=== PATIENT | male | born 1985 | race American Indian/Alaskan Native ===

== ENCOUNTER 2017-04-05 17:01 | Emergency (ER) | payer OTHER ==
[2017-04-05 18:55] LABS: Hematocrit 43.2 % (35.5-45.6); Hemoglobin 14.5 gm/dl (11.8-15.2); Mean Corpuscular HGB Conc 34 % (32-34); Mean Corpuscular Hemoglobin 31 pg (28-32); Mean Corpuscular Volume 93 fl (84-94); Platelet Count 182 K/mm3 (140-440); Red Blood Count 4.67 M/mm3 (3.65-5.03); Red Cell Distribution Width 13.8 % (13.2-15.2)
[2017-04-05 19:14] LABS: BUN/Creatinine Ratio 14; Blood Urea Nitrogen 11 mg/dL (9-20); Calcium 8.7 mg/dL (8.4-10.2); Hemolysis Index 3
--- NOTE | 2017-04-05 19:30 | XRay Report ---
FINAL REPORT EXAM: XR CHEST ROUTINE 2V HISTORY: cought/fever TECHNIQUE: Frontal and lateral chest x-ray. PRIORS: None. FINDINGS: Cardiac and mediastinal silhouette within normal limits. Lungs are normally expanded, without significant vascular congestion. No focal consolidation, pleural effusion or apparent pneumothorax. Bony thorax grossly unremarkable. IMPRESSION: 1. No acute consolidation.
[2017-04-06 06:19] VITALS: BP 134/84
[2017-04-06] MEDS ORDERED: TYLENOL PO ONE (08:03)
[2017-04-06] MEDS ORDERED: ZOFRAN ODT PO ONE (08:03)
[2017-04-06 08:33] LABS: Bilirubin,Urine NEG (Negative); Blood,Urine NEG (Negative); Color,Urine Yellow (Yellow); Mucus,Urine 1+ /HPF; Nitrite,Urine NEG (Negative)
--- NOTE | 2017-04-06 09:23 | Emergency Department Report ---
- General Chief Complaint: Upper Respiratory Infection Stated Complaint: STOMACH VIRUS/MELLO/COLD Source: patient Mode of arrival: Ambulatory Limitations: No Limitations - History of Present Illness Initial Comments: 31-year-old male past medical history HIV on HAART medicine, history of epididymitis presents with complaint of approximately 5-6 days of runny nose dry nonproductive cough slightly sore throat and a few episodes of diarrhea over the last few days. Patient states he has been slightly more fatigued than usual. Patient is currently awake alert and oriented 3 does not appear to be in acute distress nontoxic appearing for lucid. Denies any pain at this time. Denies chest pain palpitations shortness of breath or dyspnea increased urinary frequency dysuria hematuria or foul-smelling urine. Denies abdominal pain. States that he has had sinus a few episodes of watery stool over the last few days which has since resolved. Patient tolerating by mouth fluid states he has slightly decreased appetite. Patient also incidentally states that he has a cotton swab stuck in his right ear for approximately one week. States that his partner at bedside has had some similar symptoms. Denies any photo or phonophobia denies any nuchal rigidity. Denies any purulent drainage from ears. Patient speaking in full sentences no audible wheezing or stridor no visible trismus or drooling. Reports no rash. Denies any recent travel. Denies any pleuritic chest pain. States he has been compliant with his HIV medicine. Cannot recall last CD4 count or viral load MD Complaint: sore throat, rhinorrhea Onset/Timin -: days(s) Severity: mild Context: sick contacts Associated Symptoms: headache, rhinorrhea, sore throat, cough, diarrhea - Related Data Home Medications Medication Instructions Recorded Confirmed Last Taken Efavirenz/Emtricitab/Tenofovir 1 tab PO DAILY 03/30/15 12/04/15 12/03/15 [Atripla Tablet] Previous Rx's Medication Instructions Recorded Last Taken Type Acetaminophen [Acetaminophen TAB] 500 mg PO Q6HR PRN #30 tablet 04/06/17 Unknown Rx Amoxicillin/Potassium Clav 1 each PO BID #20 tablet 04/06/17 Unknown Rx [Augmentin 875-125 Tablet] Nitrofurantoin Monohyd/M-Cryst 100 mg PO BID #14 capsule 04/06/17 Unknown Rx [Macrobid 100 mg Capsule] Ondansetron [Zofran Odt] 4 mg PO Q8HR PRN #10 tab.rapdis 04/06/17 Unknown Rx Allergies Allergy/AdvReac Type Severity Reaction Status Date / Time No Known Allergies Allergy Verified 08/15/14 14:06 ED Review of Systems ROS: Stated complaint: STOMACH VIRUS/MELLO/COLD Other details as noted in HPI Constitutional: malaise. denies: chills, fever Eyes: denies: eye pain, eye discharge, vision change ENT: ear pain (right ear discomfort), congestion. denies: throat pain Respiratory: cough. denies: shortness of breath, wheezing Cardiovascular: denies: chest pain, palpitations Endocrine: no symptoms reported Gastrointestinal: diarrhea (intermittent episodes of diarrhea. Has spontaneously resolved over the last few days.). denies: abdominal pain, nausea Genitourinary: denies: urgency, dysuria Musculoskeletal: denies: back pain, joint swelling, arthralgia Skin: denies: rash, lesions Neurological: denies: headache, weakness, paresthesias Psychiatric: denies: anxiety, depression Hematological/Lymphatic: denies: easy bleeding, easy bruising ED Past Medical Hx - Past Medical History Hx Hypertension: No Hx Congestive Heart Failure: No Hx Diabetes: No Hx Asthma: No Hx COPD: No Hx HIV: Yes (immunocompromised) Additional medical history: epididymitis 03/07 - Social History Smoking Status: Never Smoker Substance Use Type: None - Medications Home Medications: Home Medications Medication Instructions Recorded Confirmed Last Taken Type Efavirenz/Emtricitab/Tenofovir 1 tab PO DAILY 03/30/15 12/04/15 12/03/15 History [Atripla Tablet] Acetaminophen [Acetaminophen TAB] 500 mg PO Q6HR PRN #30 tablet 04/06/17 Unknown Rx Amoxicillin/Potassium Clav 1 each PO BID #20 tablet 04/06/17 Unknown Rx [Augmentin 875-125 Tablet] Nitrofurantoin Monohyd/M-Cryst 100 mg PO BID #14 capsule 04/06/17 Unknown Rx [Macrobid 100 mg Capsule] Ondansetron [Zofran Odt] 4 mg PO Q8HR PRN #10 tab.rapdis 04/06/17 Unknown Rx ED Physical Exam - General Limitations: No Limitations General appearance: alert, in no apparent distress - Head Head exam: Present: atraumatic, normocephalic - Eye Eye exam: Present: normal appearance, PERRL, EOMI - ENT ENT exam: Present: mucous membranes moist - Expanded ENT Exam Expanded TM/Canal exam: Foreign Body: Right TM (cotton swab lodged in right ear canal. Successfully removed, some tympanic membrane injection and external auditory canal inflammation on exam. No clinical mastoid tenderness or erythema on physical exam) Mouth exam: Present: normal external inspection Teeth exam: Present: normal inspection - Neck Neck exam: Present: normal inspection, full ROM (neck flexion and extension fully intact), lymphadenopathy (no tender anterior cervical adenopathy) - Respiratory Respiratory exam: Present: normal lung sounds bilaterally. Absent: respiratory distress - Cardiovascular Cardiovascular Exam: Present: regular rate, normal rhythm. Absent: systolic murmur, diastolic murmur, rubs, gallop - GI/Abdominal GI/Abdominal exam: Present: soft (abdomen soft nontender nondistended for quadrants no tenderness at McBurney's point negative Vaughn's sign negative iliopsoas sign no flank tenderness on exam), normal bowel sounds - Rectal Rectal exam: Present: deferred - Extremities Exam Extremities exam: Present: normal inspection - Back Exam Back exam: Present: normal inspection, other (NO flank tenderness on exam b/l) - Neurological Exam Neurological exam: Present: alert, oriented X3, CN II-XII intact, normal gait - Psychiatric Psychiatric exam: Present: normal affect, normal mood - Skin Skin exam: Present: warm, dry, intact, normal color, other (NO rash). Absent: rash ED Course Vital Signs 04/05/17 04/06/17 04/06/17 18:08 06:15 08:14 Temperature 99 F Pulse Rate 74 74 Respiratory 18 18 18 Rate Blood Pressure 125/89 134/84 O2 Sat by Pulse 100 97 Oximetry - Foreign Body Removal Ear Location: ear canal (R) Foreign Body Suspected: other (cotton swab head) Foreign Body Removed: yes Foreign Body Removal Technique: instrumentation Tympanic Membrane Intact: Yes (TM fully intact on insepction post removal) Patient Tolerated Procedure: well Complications: none ED Medical Decision Making - Lab Data Result diagrams: 04/05/17 18:50 04/05/17 18:50 - Medical Decision Making A/P: Bacteria, URI symptoms, foreign body right ear, otitis media 1-case discussed with Dr. Galeana before discharge 2-some evidence of leukoruria, will treat patient empirically with Macrobid 3-empiric treatment with Augmentin for right otitis media. No clinical mastoiditis on exam 4-patient tolerating by mouth fluid and food without difficulty before discharge. Vital signs stable for discharge 5- I emphasized to the patient that it is important that he follow up with primary care and return to the ED for any persistent fevers chills and inability to tolerate by mouth abdominal pain, drainage from right ear, worsening lethargy or worsening cough. 5- chest x-ray unremarkable, urine culture sent. BMP and CBC unremarkable. Strep and influenza swab is negative Critical care attestation.: If time is entered above; I have spent that time in minutes in the direct care of this critically ill patient, excluding procedure time. ED Disposition Clinical Impression: Asymptomatic bacteriuria Ear foreign body Qualifiers: Encounter type: initial encounter Laterality: right Qualified Code(s): T16.1XXA - Foreign body in right ear, initial encounter Upper respiratory infection Qualifiers: URI type: unspecified viral URI Qualified Code(s): J06.9 - Acute upper respiratory infection, unspecified Disposition: TO HOME OR SELFCARE Is pt being admited?: No Does the pt Need Aspirin: No Condition: Stable Instructions: Urinary Tract Infection in Men (ED), Ear Foreign Body (ED), Upper Respiratory Infection (ED) Prescriptions: Acetaminophen [Acetaminophen TAB] 500 mg PO Q6HR PRN #30 tablet PRN Reason: Fever Amoxicillin/Potassium Clav [Augmentin 875-125 Tablet] 1 each PO BID #20 tablet Nitrofurantoin Monohyd/M-Cryst [Macrobid 100 mg Capsule] 100 mg PO BID #14 capsule Ondansetron [Zofran Odt] 4 mg PO Q8HR PRN #10 tab.rapdis PRN Reason: Nausea Referrals: [facility] [Outside] - 3-5 Days [facility] [Outside] - 3-5 Days Forms: Work/School Release Form(ED) Time of Disposition: 09:28
== END 2017-04-06 10:01 | disposition home or self-care (01) ==
LOC: ED 17:01
DX: T16.1XXA Foreign body in right ear, initial encounter (principal); J06.9 Acute upper respiratory infection, unspecified; R82.71 Bacteriuria; R19.7 Diarrhea, unspecified; W45.8XXA Other foreign body or object entering through skin, initial encounter; Y93.89 Activity, other specified; Y99.8 Other external cause status; Y92.89 Other specified places as the place of occurrence of the external cause
CPT/HCPCS: 36415; 71046; 80048; 81001; 85027; 87116; 87400; 87430; Q0162

== ENCOUNTER 2017-04-30 17:55 | Emergency (ER) | payer OTHER | END 2017-04-30 19:35 | disposition left against medical advice (07) | LOC: ED 17:55 | DX: R05 Cough (principal); Z53.21 Procedure and treatment not carried out due to patient leaving prior to being seen by health care provider ==

== ENCOUNTER 2018-01-11 09:58 | Emergency (ER) | payer SELFPAY ==
[2018-01-11 10:34] VITALS: BP 124/88
== END 2018-01-11 11:55 | disposition left against medical advice (07) ==
LOC: ED 09:58
DX: M25.532 Pain in left wrist (principal); Z53.21 Procedure and treatment not carried out due to patient leaving prior to being seen by health care provider

== ENCOUNTER 2018-05-05 12:49 | Inpatient (IN) | payer SELFPAY ==
--- NOTE | 2018-05-05 12:53 | Emergency Department Report ---
Blank Doc - Documentation Documentation: This is a 32-year-old male that presents with left elbow pain. Patient stated when he was at work he was turning the wheel and felt a "pop" sensation. Patient denies any other trauma. This initial assessment diagnostic orders/clinical plan/treatment(s) is/are subject to change based on patient's health status, clinical progression and re- assessment by fellow clinical providers in the ED. Further treatment and workup at subsequent clinical providers discretion. Patient/guardians urged not to elope from ED s their condition may be serious if not clinically assessed and managed. Initial orders include: 1-xray of elbow
--- NOTE | 2018-05-05 13:38 | XRay Report ---
FINAL REPORT PROCEDURE: XRAY ELBOW COMPLETE LEFT TECHNIQUE: LEFT elbow radiographs, including AP, lateral, and oblique views. CPT 53542 HISTORY: lt elbow pain COMPARISON: No prior studies are available for comparison. FINDINGS: No acute fracture or dislocation. No joint effusion. No focal osseous lesions are seen. IMPRESSION: No acute fracture is identified
--- NOTE | 2018-05-05 18:23 | Emergency Department Report ---
ED GI Bleed HPI - General Chief complaint: Extremity Injury, Upper Stated complaint: (L) ELBOW POPPED OUT OF PLACE Time Seen by Provider: 05/05/18 12:52 Source: patient Mode of arrival: Ambulatory Limitations: No Limitations - History of Present Illness Initial comments: Patient initially c/o left elbow pain and later he said he has been seeing laure SARGENT complaint: blood streaked stool -: Gradual Radiation: none Severity scale (0 -10): 10 Quality: sharp Consistency: constant Improves with: none Worsens with: bowel movement Associated Symptoms: abdominal pain Treatments Prior to Arrival: none - Related Data Home Medications Medication Instructions Recorded Confirmed Last Taken Efavirenz/Emtricit/Tenofovr Df 1 tab PO DAILY 03/30/15 12/04/15 12/03/15 [Atripla Tablet] Previous Rx's Medication Instructions Recorded Last Taken Type Acetaminophen [Acetaminophen TAB] 500 mg PO Q6HR PRN #30 tablet 04/06/17 Unknown Rx Amoxicillin/Potassium Clav 1 each PO BID #20 tablet 04/06/17 Unknown Rx [Augmentin 875-125 Tablet] Nitrofurantoin Monohyd/M-Cryst 100 mg PO BID #14 capsule 04/06/17 Unknown Rx [Macrobid 100 mg Capsule] Ondansetron [Zofran Odt] 4 mg PO Q8HR PRN #10 tab.rapdis 04/06/17 Unknown Rx Allergies Allergy/AdvReac Type Severity Reaction Status Date / Time No Known Allergies Allergy Verified 01/11/18 10:32 ED Review of Systems ROS: Stated complaint: (L) ELBOW POPPED OUT OF PLACE Other details as noted in HPI Comment: All other systems reviewed and negative Constitutional: denies: chills, fever Eyes: denies: eye pain, eye discharge, vision change ENT: denies: ear pain, throat pain Respiratory: denies: cough, shortness of breath, wheezing Cardiovascular: denies: chest pain, palpitations Endocrine: no symptoms reported Gastrointestinal: hematochezia, other (rectal pain). denies: abdominal pain, nausea, diarrhea Genitourinary: denies: urgency, dysuria Musculoskeletal: denies: back pain, joint swelling, arthralgia Skin: denies: rash, lesions Neurological: denies: headache, weakness, paresthesias Psychiatric: denies: anxiety, depression Hematological/Lymphatic: denies: easy bleeding, easy bruising ED Past Medical Hx - Past Medical History Hx Hypertension: No Hx Congestive Heart Failure: No Hx Diabetes: No Hx Asthma: No Hx COPD: No Hx HIV: Yes Additional medical history: epididymitis 03/07 - Social History Smoking Status: Current Every Day Smoker Substance Use Type: Alcohol - Medications Home Medications: Home Medications Medication Instructions Recorded Confirmed Last Taken Type Efavirenz/Emtricit/Tenofovr Df 1 tab PO DAILY 03/30/15 12/04/15 12/03/15 History [Atripla Tablet] Acetaminophen [Acetaminophen TAB] 500 mg PO Q6HR PRN #30 tablet 04/06/17 Unknown Rx Amoxicillin/Potassium Clav 1 each PO BID #20 tablet 04/06/17 Unknown Rx [Augmentin 875-125 Tablet] Nitrofurantoin Monohyd/M-Cryst 100 mg PO BID #14 capsule 04/06/17 Unknown Rx [Macrobid 100 mg Capsule] Ondansetron [Zofran Odt] 4 mg PO Q8HR PRN #10 tab.rapdis 04/06/17 Unknown Rx ED Physical Exam - General Limitations: No Limitations General appearance: alert, in no apparent distress - Head Head exam: Present: atraumatic, normocephalic - Eye Eye exam: Present: normal appearance, PERRL, EOMI Pupils: Present: normal accommodation - ENT ENT exam: Present: normal exam, normal orophraynx, mucous membranes moist - Neck Neck exam: Present: normal inspection, full ROM - Respiratory Respiratory exam: Present: normal lung sounds bilaterally. Absent: respiratory distress, wheezes, rales - Cardiovascular Cardiovascular Exam: Present: regular rate, normal rhythm. Absent: systolic murmur, diastolic murmur, rubs, gallop - GI/Abdominal GI/Abdominal exam: Present: soft, normal bowel sounds - Rectal Rectal exam: Present: deferred, normal inspection, normal rectal tone, heme (-) stool, tenderness, other (Patrick was Ms. Odilia RN.). Absent: hemorrhoids, mass - Extremities Exam Extremities exam: Present: normal inspection, full ROM, normal capillary refill - Back Exam Back exam: Present: normal inspection, full ROM. Absent: tenderness - Neurological Exam Neurological exam: Present: alert, oriented X3 - Psychiatric Psychiatric exam: Present: normal affect, normal mood - Skin Skin exam: Present: warm, dry, intact, normal color. Absent: rash ED Course Vital Signs 05/05/18 12:54 Temperature 99 F Pulse Rate 75 Respiratory 18 Rate Blood Pressure 189/98 O2 Sat by Pulse 98 Oximetry - Consultations Consultation #1: 05/06/18 00:51 Dr Delmi King to admit patient for further management. ED Medical Decision Making - Lab Data Result diagrams: 05/05/18 18:53 05/05/18 18:53 Lab Results 05/05/18 05/05/18 05/05/18 Range/Units 18:53 18:53 18:53 WBC 5.4 (4.5-11.0) K/mm3 RBC 4.47 (3.65-5.03) M/mm3 Hgb 13.2 (11.8-15.2) gm/dl Hct 39.7 (35.5-45.6) % MCV 89 (84-94) fl MCH 30 (28-32) pg MCHC 33 (32-34) % RDW 14.4 (13.2-15.2) % Plt Count 306 (140-440) K/mm3 Lymph % (Auto) 34.8 (13.4-35.0) % [place] % (Auto) 12.2 H (0.0-7.3) % Eos % (Auto) 0.4 (0.0-4.3) % Baso % (Auto) 0.4 (0.0-1.8) % Lymph # 1.9 (1.2-5.4) K/mm3 Nelson # 0.7 (0.0-0.8) K/mm3 Eos # 0.0 (0.0-0.4) K/mm3 Baso # 0.0 (0.0-0.1) K/mm3 Seg Neutrophils % 52.2 (40.0-70.0) % Seg Neutrophils # 2.8 (1.8-7.7) K/mm3 PT 13.2 (12.2-14.9) Sec. INR 0.96 (0.87-1.13) APTT 51.1 H (24.2-36.6) Sec. Sodium 139 (137-145) mmol/L Potassium 4.0 (3.6-5.0) mmol/L Chloride 100.1 (98-107) mmol/L Carbon Dioxide 27 (22-30) mmol/L Anion Gap 16 mmol/L BUN 14 (9-20) mg/dL Creatinine 0.8 (0.8-1.5) mg/dL Estimated GFR > 60 ml/min BUN/Creatinine Ratio 18 % Glucose 72 L (75-100) mg/dL Calcium 9.0 (8.4-10.2) mg/dL Total Bilirubin 0.30 (0.1-1.2) mg/dL AST 14 (5-40) units/L ALT 5 L (7-56) units/L Alkaline Phosphatase 101 (35-129) units/L Total Protein 8.0 (6.3-8.2) g/dL Albumin 3.8 L (3.9-5) g/dL Albumin/Globulin Ratio 0.9 % - Radiology Data Radiology results: report reviewed, image reviewed CT abdomen and pelvis with contrast showed acute proctitis. - Medical Decision Making HIV Positive. Acute Proctitis. Critical care attestation.: If time is entered above; I have spent that time in minutes in the direct care of this critically ill patient, excluding procedure time. ED Disposition Clinical Impression: HIV antibody positive, Rectal bleeding, Proctitis, Infective proctitis Disposition: OP ADMIT IP TO THIS HOSP Is pt being admited?: Yes Does the pt Need Aspirin: No Condition: Stable Referrals: BRADY BALLARD [Primary Care Provider] - 3-5 Days Time of Disposition: 01:00
[2018-05-05] MEDS ORDERED: MORPHINE IV ONE (18:43)
[2018-05-05] MEDS ORDERED: ZOFRAN IV ONE (18:43)
[2018-05-05] MEDS ORDERED: NACL 0.9% 1000 ML 1,000 ML IV ONE (18:44)
[2018-05-05] MEDS ORDERED: MORPHINE ONE (18:48)
[2018-05-05 19:10] LABS: Basophils % (Auto) 0.4 % (0.0-1.8); Eosinophils % (Auto) 0.4 % (0.0-4.3); Hematocrit 39.7 % (35.5-45.6); Hemoglobin 13.2 gm/dl (11.8-15.2); Lymphocytes # (Auto) 1.9 K/mm3 (1.2-5.4); Lymphocytes % (Auto) 34.8 % (13.4-35.0); Mean Corpuscular HGB Conc 33 % (32-34); Mean Corpuscular Volume 89 fl (84-94); Monocytes # (Auto) 0.7 K/mm3 (0.0-0.8); Monocytes % (Auto) 12.2 % (0.0-7.3); Platelet Count 306 K/mm3 (140-440); Red Blood Count 4.47 M/mm3 (3.65-5.03); Red Cell Distribution Width 14.4 % (13.2-15.2)
[2018-05-05 19:13] LABS: INR 0.96 (0.87-1.13); Partial Thromboplastin Time 51.1 Sec. (24.2-36.6)
[2018-05-05 19:15] LABS: Alanine Aminotransferase 5 units/L (7-56); Albumin 3.8 g/dL (3.9-5); BUN/Creatinine Ratio 18; Blood Urea Nitrogen 14 mg/dL (9-20); Hemolysis Index 0
--- NOTE | 2018-05-06 00:27 | Cat Scan Report ---
FINAL REPORT EXAM: CT ABDOMEN PELVIS W CON HISTORY: Rectal and abdominal pain TECHNIQUE: Dynamic helical CT scan through the abdomen and pelvis after ingestion of oral contrast a nd during and again after intravenous injection of iodinated contrast. Images are reconstructed in th e sagittal and coronal planes. PRIORS: 03/30/2015 FINDINGS: The lung bases are clear. The liver, gallbladder, pancreas, spleen and adrenal glands appear normal. The kidneys appear normal. The pelvic organs appear grossly normal. The stomach appears grossly within normal limits. There is pronounced thickening of the wall of the rectum with associated perirectal fat graying and s ignificant adenopathy. It involves the distal rectum over a distance of about 5 cm. The small bowel is nondilated. Oral contrast progressed to the transverse colon. There is no evidence of bowel obstruction. There are enlarged mesenteric lymph nodes in the lower abdomen. There are enla rged inguinal lymph nodes. A normal-appearing appendix is identified. The abdominal aorta has a normal diameter. The bones and subcutaneous soft tissues are unremarkable for age. IMPRESSION: 1. Findings are most consistent with severe acute proctitis. Differential diagnosis includes infectio us proctitis or ulcerative colitis. Also consider neoplasm including rectal carcinoma and lymphoma. 2. There is associated perirectal, mesenteric and inguinal adenopathy.
[2018-05-06] MEDS ORDERED: FLAGYL 500 MG/100 ML 500 MG/100 ML BAG IV ONE (00:49)
[2018-05-06] MEDS ORDERED: LEVAQUIN 750MG/150ML 750 MG/150 ML BAG IV ONE (00:49)
[2018-05-06] MEDS ORDERED: MORPHINE ONE (01:15)
[2018-05-06] MEDS ORDERED: SODIUM CHLORIDE FLUSH SYRINGE 10 ML IV PRN (01:20)
[2018-05-06] MEDS ORDERED: ZOFRAN IV PRN (01:20)
[2018-05-06] MEDS ORDERED: TYLENOL PO PRN (01:20)
--- NOTE | 2018-05-06 01:23 | History and Physical Report ---
History of Present Illness Date of examination: 05/06/18 History of present illness: 32-year-old man a history of HIV, unknown CD4 count comes to the emergency room with complaints of blood in his stool 1 week. He also complained of abdominal cramping all over right before he has a bowel movement. Complains that these often difficulty having a bowel movement, no hematemesis Review of systems Constitutional: no weight loss, chills, fever Ears, eyes, nose, mouth and throat: no nasal congestion, no nasal discharge, no sinus pressure, no vision change, no red eye. Neck: No neck pain or rigidity. Cardiovascular: no palpitations, chest pain Respiratory: + cough, shortness of breath Gastrointestinal: no hematochezia, abdominal pain Genitourinary : no frequency , no hematuria Musculoskeletal: no joint swelling or muscle ache Integumentary: no rash, no pruritis Neurological: no parathesias, no focal weakness Endocrine: no cold or heat intolerance, no polyuria or polydipsia Hematologic/Lymphatic: no easy bruising, no easy bleeding, no gland swelling Allergic/Immunologic: no urticaria, no angioedema. PAST MEDICAL HISTORY: HIV PAST SURGICAL HISTORY: None SOCIAL HISTORY: +alcohol, +drugs,+ tobacco FAMILY HISTORY: Hypertension Medications and Allergies Allergies Allergy/AdvReac Type Severity Reaction Status Date / Time No Known Allergies Allergy Verified 01/11/18 10:32 Home Medications Medication Instructions Recorded Confirmed Last Taken Type Efavirenz/Emtricit/Tenofovr Df 1 tab PO DAILY 03/30/15 12/04/15 12/03/15 History [Atripla Tablet] Acetaminophen [Acetaminophen TAB] 500 mg PO Q6HR PRN #30 tablet 04/06/17 Unkn own Rx Amoxicillin/Potassium Clav 1 each PO BID #20 tablet 04/06/17 Unknown Rx [Augmentin 875-125 Tablet] Nitrofurantoin Monohyd/M-Cryst 100 mg PO BID #14 capsule 04/06/17 Unknown Rx [Macrobid 100 mg Capsule] Ondansetron [Zofran Odt] 4 mg PO Q8HR PRN #10 tab.rapdis 04/06/17 Unknown Rx Active Meds: Active Medications Acetaminophen (Tylenol) 650 mg PO Q4H PRN PRN Reason: Pain MILD(1-3)/Fever >100.5/MELLO Levofloxacin/Dextrose (Levaquin 750mg/150ml) 750 mg in 150 mls @ 100 mls/hr IV ONCE ONE Stop: 05/06/18 02:18 Last Admin: 05/06/18 01:17 Dose: 100 mls/hr Documented by: Sodium Chloride (Nacl 0.9% 1000 Ml) 1,000 mls @ 125 mls/hr IV DIRECT BRENNEN Metronidazole (Flagyl) 500 mg PO Q8H BRENNEN; Protocol Morphine Sulfate (Morphine) 2 mg IV Q4H PRN PRN Reason: Pain, Moderate (4-6) Ondansetron HCl (Zofran) 4 mg IV Q8H PRN PRN Reason: Nausea And Vomiting Sodium Chloride (Sodium Chloride Flush Syringe 10 Ml) 10 ml IV BID BRENNEN Sodium Chloride (Sodium Chloride Flush Syringe 10 Ml) 10 ml IV PRN PRN PRN Reason: LINE FLUSH Exam - Physical Exam Narrative exam: General Apperance: The patient lying in bed, breathing comfortable HEENT: Normocephalic, atraumatic. Pupils equally round and reactive to light, EOMI, no sclericterus or JVD or thyromegaly or nodule. , no carotid bruit, mucous membranes moist, no exudate or erythema Heart: S1-S2, regular is rhythm Lungs: Clear to auscultation bilaterally, breathing comfortable Abdomen: Positive bowel sounds, soft, nontender, nondistended, no organomegaly Extremities: No edema cyanosis clubbing Skin: no rash, nodule, warm and dry Neuro: cranial nerves 2-12 intact, speech is fluent, motor/sensory intact - Constitutional Vitals: Temp Pulse Resp BP Pulse Ox 99 F 75 18 189/98 98 05/05/18 12:54 05/05/18 12:54 05/05/18 12:54 05/05/18 12:54 05/05/18 12:54 Results - Labs CBC & Chem 7: 05/05/18 18:53 05/05/18 18:53 Labs: Abnormal lab results 05/05/18 05/05/18 05/05/18 Range/Units 18:53 18:53 18:53 [place] % (Auto) 12.2 H (0.0-7.3) % APTT 51.1 H (24.2-36.6) Sec. Glucose 72 L (75-100) mg/dL ALT 5 L (7-56) units/L Albumin 3.8 L (3.9-5) g/dL - Imaging and Cardiology CT scan - abdomen: report reviewed CT scan - pelvis: report reviewed Assessment and Plan Assessment Acute proctitis HIV, unknown CD4 count Plan Start IV fluids, IV Levaquin, Flagyl, follow cultures Consult GI, IV morphine DVT prophylaxis
[2018-05-06] MEDS ORDERED: MORPHINE IV ONE (01:43)
[2018-05-06] MEDS ORDERED: NACL 0.9% 1000 ML 1,000 ML IV SCH (02:00)
[2018-05-06 04:03] LABS: Basophils % (Auto) 0.6 % (0.0-1.8); Eosinophils % (Auto) 0.7 % (0.0-4.3); Hematocrit 38.7 % (35.5-45.6); Lymphocytes # (Auto) 2.4 K/mm3 (1.2-5.4); Lymphocytes % (Auto) 40.9 % (13.4-35.0); Mean Corpuscular HGB Conc 33 % (32-34); Mean Corpuscular Volume 88 fl (84-94); Monocytes # (Auto) 0.7 K/mm3 (0.0-0.8); Monocytes % (Auto) 11.7 % (0.0-7.3); Platelet Count 323 K/mm3 (140-440); Red Blood Count 4.39 M/mm3 (3.65-5.03); Red Cell Distribution Width 14.4 % (13.2-15.2)
[2018-05-06 04:17] LABS: BUN/Creatinine Ratio 14; Blood Urea Nitrogen 11 mg/dL (9-20); Calcium 8.4 mg/dL (8.4-10.2); Hemolysis Index 3
[2018-05-06] MEDS: FLAGYL PO SCH ×2 (05:35→10:38)
[2018-05-06] MEDS: MORPHINE IV PRN ×4 (07:00→21:59)
[2018-05-06] MEDS: SODIUM CHLORIDE FLUSH SYRINGE 10 ML IV SCH ×2 (09:25→22:00)
[2018-05-06] MEDS ORDERED: LEVAQUIN 750MG/150ML 750 MG/150 ML BAG IV SCH (10:00)
--- NOTE | 2018-05-06 10:33 | Gastroenterology Consultation ---
Addendum entered and electronically signed by JYOTSNA JEROME MD 05/06/18 20:12: I have personally interviewed and examined the patient. I suspect infectious proctitis (likely STD). Will cover with appropriate abx. Colonoscopy if no improvement. Original Note: History of Present Illness - Reason for Consult Consult date: 05/06/18 proctitis Requesting physician: HUMBERTO MCMAHON - History of Present Illness Patient is a 32 y/o male with PMH of HIV (on antiviral medications; unknown CD4 count) and epididymitis who presented to ED with c/o blood in his stool x 1 week. Upon admission, abd CT showed acute proctitis to which GI has been consulted. This morning patient was resting in bed w/o acute distress. He reports BRBPR mixed with stool x 1 week with associated intermittent lower abd cramping (now resolved) and rectal pain described as a burning sensation that lasts in duration of approximately 1 hour following having a BM. No hematemesis or melena. No active signs of bleeding this am. Denies fever, CP, SOB, wt loss, abd pain, N/V, diarrhea, or constipation. No recent abx therapy, travel, or sick contacts. No recent rectal trauma. No hx or Fhx of IBD or GI cancer. Patient is previously known to our service from a consult in 2016 for similar symptoms (hematochezia) and underwent a colonoscopy by Dr. Garcia on 03/31/2015 that showed small internal hemorrhoids and perianal condyloma, which were removed by colorectal surgeon at that time. Past History Past Medical History: other (HIV, epididymitis) Past Surgical History: Other (colonoscopy 2016; removal of perianal condyloma) Social history: smoking, other (alcohol, marijuana) Family history: hypertension Medications and Allergies Allergies Allergy/AdvReac Type Severity Reaction Status Date / Time No Known Allergies Allergy Verified 01/11/18 10:32 Home Medications Medication Instructions Recorded Confirmed Last Taken Type Elviteg/Cob/Emtri/Tenof Alafen 1 each PO QPM 05/06/18 05/06/18 05/04/18 History [Genvoya Tablet] Active Meds: Active Medications Acetaminophen (Tylenol) 650 mg PO Q4H PRN PRN Reason: Pain MILD(1-3)/Fever >100.5/MELLO Sodium Chloride (Nacl 0.9% 1000 Ml) 1,000 mls @ 125 mls/hr IV DIRECT BRENNEN Levofloxacin/Dextrose (Levaquin 750mg/150ml) 750 mg in 150 mls @ 100 mls/hr IV Q24HR [facility]; Protocol Last Admin: 05/06/18 09:24 Dose: 100 mls/hr Documented by: Metronidazole (Flagyl) 500 mg PO Q8H BRENNEN; Protocol Last Admin: 05/06/18 05:35 Dose: Not Given Documented by: Morphine Sulfate (Morphine) 2 mg IV Q4H PRN PRN Reason: Pain, Moderate (4-6) Last Admin: 05/06/18 07:00 Dose: 2 mg Documented by: Ondansetron HCl (Zofran) 4 mg IV Q8H PRN PRN Reason: Nausea And Vomiting Last Admin: 05/06/18 07:00 Dose: 4 mg Documented by: Sodium Chloride (Sodium Chloride Flush Syringe 10 Ml) 10 ml IV BID BRENNEN Last Admin: 05/06/18 09:25 Dose: 10 ml Documented by: Sodium Chloride (Sodium Chloride Flush Syringe 10 Ml) 10 ml IV PRN PRN PRN Reason: LINE FLUSH medications reviewed/updated as required Review of Systems - Review of Systems Gastrointestinal: BRBPR Exam - Constitutional Vital Signs: Temp Pulse Resp BP Pulse Ox 98.4 F 78 16 120/72 95 05/06/18 08:37 05/06/18 08:37 05/06/18 08:37 05/06/18 08:37 05/06/18 08:37 General appearance: no acute distress - EENT Eyes: PERRL, EOM intact ENT: hearing intact - Respiratory Respiratory: bilateral: CTA - Cardiovascular Rhythm: regular Heart Sounds: Present: S1 & S2 - Gastrointestinal General gastrointestinal: Present: soft, non-tender, non-distended, normal bowel sounds - Neurologic Neurological: alert and oriented x3 - Labs CBC & Chem 7: 05/06/18 03:50 05/06/18 03:50 Lab Results: Laboratory Results - last 24 hr 05/05/18 05/05/18 05/05/18 18:53 18:53 18:53 WBC 5.4 RBC 4.47 Hgb 13.2 Hct 39.7 MCV 89 MCH 30 MCHC 33 RDW 14.4 Plt Count 306 Lymph % (Auto) 34.8 [place] % (Auto) 12.2 H Eos % (Auto) 0.4 Baso % (Auto) 0.4 Lymph # 1.9 [place] # 0.7 Eos # 0.0 Baso # 0.0 Seg Neutrophils % 52.2 Seg Neutrophils # 2.8 PT 13.2 INR 0.96 APTT 51.1 H Sodium 139 Potassium 4.0 Chloride 100.1 Carbon Dioxide 27 Anion Gap 16 BUN 14 Creatinine 0.8 Estimated GFR > 60 BUN/Creatinine Ratio 18 Glucose 72 L Calcium 9.0 Total Bilirubin 0.30 AST 14 ALT 5 L Alkaline Phosphatase 101 Total Protein 8.0 Albumin 3.8 L Albumin/Globulin Ratio 0.9 05/06/18 05/06/18 03:50 03:50 WBC 5.8 RBC 4.39 Hgb 13.0 Hct 38.7 MCV 88 MCH 30 MCHC 33 RDW 14.4 Plt Count 323 Lymph % (Auto) 40.9 H [place] % (Auto) 11.7 H Eos % (Auto) 0.7 Baso % (Auto) 0.6 Lymph # 2.4 [place] # 0.7 Eos # 0.0 Baso # 0.0 Seg Neutrophils % 46.1 Seg Neutrophils # 2.7 PT INR APTT Sodium 135 L Potassium 3.7 Chloride 97.2 L Carbon Dioxide 27 Anion Gap 15 BUN 11 Creatinine 0.8 Estimated GFR > 60 BUN/Creatinine Ratio 14 Glucose 107 H Calcium 8.4 Total Bilirubin AST ALT Alkaline Phosphatase Total Protein Albumin Albumin/Globulin Ratio Assessment and Plan 1.hematochezia 2.proctitis seen on CT 3.H/o perianal condyloma (removed 2016) 4.HIV (on antiviral medications) -afebrile -WBC WNL -H/H WNL (13.0/38.7)-stable -continue to monitor H/H and transfuse as needed -patient reports BRBPR mixed with brown stool x 1 week with associated rectal pain and lower abd cramping (no resolved) following BMs. No hematemesis, melena, diarrhea, or constipation. -last colonoscopy in 2016 revealed small internal hemorrhoids and perianal condyloma -etiology-likely 2/2 proctitis (most likely infectious proctitis given history) -clinically, patient is stable with no active signs of bleeding this am. Denies abd pain or N/V. Tolerating diet. -no plans for repeat colonoscopy at this time -will order RPR -give 1 g azithromycin now -start on doxycycline 100mg BID x 7 days -continue supportive care -patient okay to be d/c home on antibiotics with f/u in clinic ~2-3 weeks -will sign off, please call if needed
--- NOTE | 2018-05-06 11:40 | Event Note ---
Date: 05/06/18 Patient seen and examined. This is a follow-up from an admission earlier this morning. We will continue plan as outlined in H&P. I discussed the case with GI. Total time 25 minutes with greater than 50% spent on coordination of care and counseling.
[2018-05-06] MEDS ORDERED: ZITHROMAX PO ONE (12:09)
[2018-05-06] MEDS ORDERED: MORPHINE IM ONE (21:40)
[2018-05-06] MEDS: VIBRAMYCIN PO SCH (22:00)
[2018-05-07] MEDS: MORPHINE IV PRN ×4 (04:46→19:28)
[2018-05-07 09:31] VITALS: BP 135/83
[2018-05-07] MEDS: VIBRAMYCIN PO SCH (09:43)
[2018-05-07 09:48] LABS: Hematocrit 37.8 % (35.5-45.6); Hemoglobin 12.6 gm/dl (11.8-15.2)
--- NOTE | 2018-05-07 10:56 | Gastroenterology Progress Note ---
Addendum entered and electronically signed by JYOTSNA JEROME MD 05/07/18 16:59: I have personally interviewed and examined the patient. I agree with the above A/P. The infectious proctitis likely syphilis +/- other STD. Clinically better, and OK to d/c home when cleared by ID. Will sign off for now; please call if needed. Original Note: Assessment and Plan 1.hematochezia 2.proctitis seen on CT 3.H/o perianal condyloma (removed 2016) 4.HIV (on antiviral medications) -afebrile -WBC WNL -H/H WNL -RPR pending -continue to monitor H/H and transfuse as needed -last colonoscopy in 2015 revealed small internal hemorrhoids and perianal condyloma -etiology-suspect infectious proctitis (likely STD) -clinically, patient is stable with rectal bleeding improving but has continued c/o rectal burning following BMs. Denies abd pain or N/V. Tolerating diet. -no plans for repeat colonoscopy at this time -start on topical lidocaine for rectal pain -continue appropriate abx (doxycycline 100mg BID x 7 days- 1g azithromycin given yesterday) -continue supportive care -patient okay to be d/c home per GI standpoint on current medications with f/u in clinic ~2-3 weeks -will sign off, please call if needed Subjective Date of service: 05/07/18 Principal diagnosis: proctitis Interval history: Patient w/o acute distress. Reports rectal bleeding is improving (had BM x 1 this am with liquid brown stool mixed with a scant amount of bright red blood) but has c/o continued rectal burning following BMs. No abd pain or N/V. Tolerati ng diet. Objective - Constitutional Vitals: Temp Pulse Resp BP Pulse Ox 98.3 F 63 16 135/83 92 05/07/18 09:15 05/07/18 09:15 05/07/18 09:15 05/07/18 09:15 05/07/18 09:15 General appearance: no acute distress - EENT Eyes: PERRL, EOM intact ENT: hearing intact - Respiratory Respiratory: bilateral: CTA - Cardiovascular Rhythm: regular Heart Sounds: Present: S1 & S2 - Gastrointestinal General gastrointestinal: Present: soft, non-tender, non-distended, normal bowel sounds - Neurologic Neurological: alert and oriented x3 - Labs CBC & Chem 7: 05/07/18 09:04 05/06/18 03:50 Labs: Laboratory Results - last 24 hr 05/07/18 09:04 Hgb 12.6 Hct 37.8
[2018-05-07] MEDS ORDERED: XYLOCAINE TOPICAL 2% 30ML TP ONE (12:04)
[2018-05-07] MEDS ORDERED: COLACE PO SCH (14:00)
--- NOTE | 2018-05-07 16:56 | Discharge Summary ---
Providers - Providers Date of Admission: 05/06/18 03:42 Date of discharge: 05/07/18 Attending physician: ESVIN BELL 05/06/18 01:20 Consult to Physician [CONS] Routine Comment: Consulting Provider: JYOTSNA JEROME Physician Instructions: Reason For Exam: proctitis 05/07/18 15:57 Consult to Physician [CONS] Routine Comment: Consulting Provider: ROBERT BALLESTEROS Physician Instructions: Reason For Exam: RPR pos, acute proctitis,HIV pos Primary care physician: BRADY BALLARD Hospitalization Condition: Fair Hospital course: Patient is 32-year-old man with history of HIV, unknown CD4 count comes to the emergency room with complaints of abdominal pain and blood in his stool 1 week. He denies hematemesis. He was evaluated in ED and CT Abdomen revealed severe proctitis. He was admitted and GI and ID Physician consulted. ID Physician ordered ceftriaxone, Benzathine Penicillin and recommended discharge home on Doxycycline and follow up for 2 more injections of Benzathine Penicillin. so he was dc home to follow as outpatient. Disposition: DC-01 TO HOME OR SELFCARE - Discharge Diagnoses (1) HIV disease Status: Acute (2) Abdominal pain Status: Acute (3) Hyponatremia Status: Acute (4) Infective proctitis Status: Acute (5) Rectal bleeding Status: Acute (6) Syphilis Status: Acute (7) Transaminitis Status: Acute Core Measure Documentation - Palliative Care Palliative Care/ Comfort Measures: Not Applicable - Core Measures Any of the following diagnoses?: none Exam - Constitutional Vitals: Temp Pulse Resp BP Pulse Ox 98.3 F 64 16 135/83 92 05/07/18 09:15 05/07/18 11:13 05/07/18 09:15 05/07/18 09:15 05/07/18 09:15 Plan Activity: no restrictions Diet: regular Additional Instructions: 1.Follow up with PCP in 1 week. 2.Follow up with ID Physician in 1 week. 3.Follow up with Dr. Jerome, GI in 1 week Prescriptions: Docusate Sodium [Colace CAP] 100 mg PO BID #30 capsule Doxycycline [Vibramycin CAP] 100 mg PO BID #14 capsule
--- NOTE | 2018-05-07 16:59 | Consultation ---
History of Present Illness - Reason for Consult Consult date: 05/07/18 HIV, RPR positive, proctitis Requesting physician: ESVIN FREGOSO - History of Present Illness The patient is a 32-year-old male with history of HIV that was diagnosed about 5 years ago currently on antiretrovirals: Genvoya, h/o perianal condyloma seen on colonoscopy in 2015, presented to the emergency room on 05/05/2018 with complaints of rectal pain and bleeding. He had a CT abdomen which showed f indings concerning for proctitis for which GI was consulted. Due to concerns for infectious proctitis, he was given a dose of azithromycin 1 g by gastroenterology and started on oral doxycycline 100 mg twice a day for 7 days. An RPR was ordered and returned positive at 1:256 and hence infectious diseases was consulted. The patient denies any prior diagnosis of syphilis and denies receiving any pr evious benzathine penicillin shots. His rectal pain is currently stable. With regards to his HIV, this was diagnosed about 5 years ago. He was initially started on Atripla for 3 years and then switched to Genvoya and recently when he moved to [place], he started seeing the [facility] where his Genvoya has been continued. He reports good control of his HIV and excellent compliance. He has been sexually active with both males and females. Denies any drug use. Review of Systems: General: no fevers,chills or rigors HEENT: no new visual disturbance Respiratory: No cough, sputum, hemoptysis or shortness of breath Cardiovascular: No chest pain, syncope Gastrointestinal: No nausea, vomiting or diarrhea Genitourinary: No dysuria or hematuria Musculoskeletal: No new or worsening neck pain or back pain Neurologic: No headaches, seizures Hematologic: No easy bruising or bleeding Endocrine: No night sweats or acute weight loss Skin: negative for rash, jaundice Psychiatric: No suicidal or homicidal ideation Past History Past Medical History: other (HIV, epididymitis) Past Surgical History: Other (colonoscopy 2015; removal of perianal condyloma) Social history: smoking, other (alcohol, marijuana) Family history: hypertension Medications and Allergies Allergies Allergy/AdvReac Type Severity Reaction Status Date / Time No Known Allergies Allergy Verified 01/11/18 10:32 Home Medications Medication Instructions Recorded Confirmed Last Taken Type Elviteg/Cob/Emtri/Tenof Alafen 1 each PO QPM 02/11/19 02/11/19 02/09/19 History [Genvoya Tablet] Docusate Sodium [Colace CAP] 100 mg PO BID #30 capsule 05/07/18 Unknown Rx Doxycycline [Vibramycin CAP] 100 mg PO BID #14 capsule 05/07/18 Unknown Rx Active Meds: Active Medications Acetaminophen (Tylenol) 650 mg PO Q4H PRN PRN Reason: Pain MILD(1-3)/Fever >100.5/MELLO Docusate Sodium (Colace) 100 mg PO BID BRENNEN Doxycycline Hyclate (Vibramycin) 100 mg PO BID [facility] Stop: 05/13/18 10:01 Last Admin: 05/07/18 09:43 Dose: 100 mg Documented by: Sodium Chloride (Nacl 0.9% 1000 Ml) 1,000 mls @ 125 mls/hr IV DIRECT BRENNEN Ceftriaxone Sodium (Rocephin/Ns 2 Gm/100 Ml) 2 gm in 100 mls @ 200 mls/hr IV ONCE ONE; Protocol Stop: 05/07/18 17:04 Miscellaneous Medication (Elviteg/Cob/Emtri/Tenof Alafen [Genvoya Tablet]) 1 each PO QPM [facility] Morphine Sulfate (Morphine) 2 mg IV Q4H PRN PRN Reason: Pain, Moderate (4-6) Last Admin: 05/07/18 09:43 Dose: 2 mg Documented by: Ondansetron HCl (Zofran) 4 mg IV Q8H PRN PRN Reason: Nausea And Vomiting Last Admin: 05/06/18 07:00 Dose: 4 mg Documented by: Penicillin G Benzathine (Bicillin L-A) 2.4 mil.units IM ONCE ONE Stop: 05/07/18 16:36 Sodium Chloride (Sodium Chloride Flush Syringe 10 Ml) 10 ml IV BID [facility] Last Admin: 05/06/18 22:00 Dose: 10 ml Documented by: Sodium Chloride (Sodium Chloride Flush Syringe 10 Ml) 10 ml IV PRN PRN PRN Reason: LINE FLUSH Physical Examination - Physical Exam Narrative exam: Physical Exam: Constitutional: Alert, cooperative. No acute distress Head, Ears, Nose: Normocephalic, atraumatic. External ears, nose normal Eyes: Conjunctivae/corneas clear. No icterus. No ptosis. Neck: Supple, no meningeal signs Oral: dentition fair, no thrush Cardiovascular: S1, S2 normal. Respiratory: Good air entry, clear to auscultation bilaterally GI: Soft, non-tender; bowel sounds normal. No peritoneal signs Musculoskeletal: No pedal edema, no cyanosis. : no penile ulcerations Skin: No rash or abscess Hem/Lymphatic: No palpable cervical or supraclavicular nodes. No lymphangitis Psych: Mood ok. Affect normal Neurological: Awake, alert, oriented. No gross abnormality - Constitutional Vitals: Vital Signs Temp Pulse Resp BP Pulse Ox 98.3 F 64 16 135/83 92 05/07/18 09:15 05/07/18 11:13 05/07/18 09:15 05/07/18 09:15 05/07/18 09:15 Temperature -Last 24 Hours Temperature 98.3 F Temperature 98.1 F Temperature 98.4 F Temperature 98.3 F Temperature 98.6 F Results - Labs CBC & Chem 7: 05/07/18 09:04 05/06/18 03:50 - Imaging and Cardiology CT scan - abdomen: report reviewed, image reviewed (showed severe acute proctitis) Assessment and Plan Cultures: 05/06/2018 blood culture: No growth at 24 hours A/P: 32/M with HIV admitted with proctitis: 1) Syphlis: new diagnosis, RPR titer is 1:256. Patient has HIV that is well controlled. No clinical concern for neurosyphilis. Plan to treat with IM PCN shots. 2) HIV: well controlled. On Genvoya. Continue health dept follow up. 3) Proctitis: likely infections: could be from syphilis v/s gonorrhea v/s chlamydia. RPR is positive at 1:256. Already got a dose of azithromycin 1 g by gastroenterology and started on oral doxycycline 100 mg twice a day for 7 days. Recs: - 1 dose of Ceftriaxone ordered - IM Benzathine PCN 2.4 million units x 1 ordered, needs 3 total shots once weekly, patient to follow up with the health department or our clinic (contact info given) for remaining 2 shots and RPR titer monitoring and ensure no treatment failure - resume HIV meds - continue PO doxycycline 100 mg BID to complete 7 days - OK to discharge patient from ID standpoint D/W Dr. Fregoso and Dr. Drew from . Adilene Fountain MD [facility] C: [phone] O: [phone] F: [phone]
[2018-05-07] MEDS ORDERED: NON-FORMULARY (Elviteg/Cob/Emtri/Tenof Alafen [Genvoya Tablet] 1 EACH) PO SCH (18:00)
[2018-05-07] MEDS ORDERED: BICILLIN L-A IM ONE (18:00)
[2018-05-07] MEDS ORDERED: ROCEPHIN/NS 2 GM/100 ML 2 GM/100 ML BAG IV ONE (18:00)
[2018-05-07] MEDS: SODIUM CHLORIDE FLUSH SYRINGE 10 ML IV SCH (19:29)
== END 2018-05-07 19:40 | disposition home or self-care (01) | DRG 868 ==
LOC: ED 12:49 → 4A 05-06 03:42
PROVIDERS: ADMIT Internal Medicine; ATTEND Internal Medicine
DX: A53.9 Syphilis, unspecified (principal); K62.5 Hemorrhage of anus and rectum; K62.89 Other specified diseases of anus and rectum; F17.210 Nicotine dependence, cigarettes, uncomplicated; Z21 Asymptomatic human immunodeficiency virus [HIV] infection status; Z82.49 Family history of ischemic heart disease and other diseases of the circulatory system
CPT/HCPCS: 36415; 74177; 80048; 80053; 85014; 85018; 85025; 85610; 85730; 86592; 86593; 86780; 87040; G0378; J0561; J0696; J1956; J2270; J2405; J7030; Q9967

== ENCOUNTER 2018-09-22 19:58 | Emergency (ER) | payer SELFPAY ==
[2018-09-22 20:10] VITALS: BP 134/74
--- NOTE | 2018-09-22 20:31 | Event Note ---
ED Screening Note Date of service: 09/22/18 Time: 20:26 ED Screening Note: 32 y/o male comes in for left arm and left shoulder. Denies any trauma. 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 This initial assessment/diagnostic orders/clinical plan/treatment(s) is/are subject to change based on patients health status, clinical progression and re- assessment by fellow clinical providers in the ED. Further treatment and workup at subsequent clinical providers discretion. Patient/guardian urged not to elope from the ED as their condition may be serious if not clinically assessed and managed. Initial orders include:
--- NOTE | 2018-09-22 20:36 | Emergency Department Report ---
Chief Complaint: Shoulder Injury Stated Complaint: LEFT SHOULDER/NECK PAIN - HPI History of Present Illness: 32 y/o male comes in for left arm and left shoulder. Denies any trauma. 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 - Exam Vital Signs: Vital Signs 09/22/18 09/22/18 20:09 20:26 Temperature 98.6 F 98.6 F Pulse Rate 87 87 Respiratory 18 18 Rate Blood Pressure 134/74 Blood Pressure 134/74 [Left] O2 Sat by Pulse 95 95 Oximetry Physical Exam: AxO times 3 NAD FROM on all extremities. Stable mood. MSE screening note: Focused history and physical exam performed. Due to findings the following was ordered: Recommend Ibuprofen 600mg to 800mg three times a day, bengay or Aspercream rub. Follow up with your PCP ED Disposition for MSE Disposition: Z- MED SCREENING EXAM-LEFT Is pt being admited?: No Does the pt Need Aspirin: No Condition: Stable Instructions: Muscle Strain (ED) Additional Instructions: Take Over the Counter Ibuprofen 800mg three times a day. Bengay or Aspercream. Increase your water intake. Forms: Work/School Release Form(ED)
== END 2018-09-22 20:50 | disposition left against medical advice (07) ==
LOC: ED 19:58
DX: M25.512 Pain in left shoulder (principal); Z53.21 Procedure and treatment not carried out due to patient leaving prior to being seen by health care provider

== ENCOUNTER 2019-03-20 21:26 | Emergency (ER) | payer SELFPAY ==
[2019-03-21 02:57] LABS: Basophils % (Auto) 0.5 % (0.0-1.8); Eosinophils # (Auto) 0.1 K/mm3 (0.0-0.4); Eosinophils % (Auto) 1.1 % (0.0-4.3); Hematocrit 43.1 % (35.5-45.6); Hemoglobin 14.5 gm/dl (11.8-15.2); Lymphocytes # (Auto) 2.3 K/mm3 (1.2-5.4); Mean Corpuscular HGB Conc 34 % (32-34); Mean Corpuscular Volume 91 fl (84-94); Monocytes # (Auto) 0.6 K/mm3 (0.0-0.8); Monocytes % (Auto) 10.3 % (0.0-7.3); Platelet Count 302 K/mm3 (140-440); Red Blood Count 4.72 M/mm3 (3.65-5.03); Red Cell Distribution Width 14.5 % (13.2-15.2)
[2019-03-21 03:16] LABS: BUN/Creatinine Ratio 10; Blood Urea Nitrogen 8 mg/dL (9-20); Hemolysis Index 7
--- NOTE | 2019-03-21 10:26 | Emergency Department Report ---
HPI - General Chief Complaint: GI Bleed Time Seen by Provider: 03/21/19 09:59 - HPI HPI: Room 25 The patient is a 33-year-old male presenting with a chief complaint of rectal pain and rectal bleeding. The patient states earlier this year he was diagnosed with a internal and external hemorrhoid after colonoscopy. He states for 4 months he had blood in the stool back pain with a bowel movement. After his colonoscopy the patient states she was given medicine and his symptoms resolved. Over the past 5 days the patient states he feels as though symptoms are returning which includes rectal discomfort when having a bowel movement. The patient states 3 days ago after having a bowel movement this tissue was pink when wiping however he's had slightly increased bleeding from the rectum over the past 2 days. The patient also admits to a random epistaxis over the past 5 days Location: [See above] Duration: [See above] Quality: [See above] Severity: [See above] Timing: [See above] Context: [See above] Modifying factors: [See above] Associated signs and symptoms: [see above] ED Past Medical Hx - Past Medical History Previous Medical History?: Yes Hx HIV: Yes Additional medical history: epididymitis, Hemorrhoids - Surgical History Past Surgical History?: No - Family History Family history: no significant - Social History Smoking Status: Current Every Day Smoker (1/7 pack per day) Substance Use Type: None (denies illicit drug use), Alcohol (frequently) - Medications Home Medications: Home Medications Medication Instructions Recorded Confirmed Last Taken Type Elviteg/Cob/Emtri/Tenof Alafen 1 each PO QPM 05/06/18 05/09/18 05/07/18 History [Genvoya Tablet] DOXYCYCLINE Hyclate [Vibramycin 100 mg PO BID #14 capsule 05/07/18 05/09/18 05/07/18 Rx CAP] Nicotine [Habitrol] 14 mg TD DAILY #30 patch 05/10/18 Unknown Rx Docusate Sodium [Colace CAP] 100 mg PO BID #60 capsule 03/21/19 Unknown Rx HYDROcodone/APAP 5-325 [[place] 1 - 2 each PO Q6HR PRN #14 tablet 03/21/19 Unknown Rx 5/325] Hydrocortisone [Anucort-HC SUPPOS] 25 mg RC BID #14 supp.rect 03/21/19 Unknown Rx ED Review of Systems ROS: Stated complaint: BLOOD IN STOOL Other details as noted in HPI Constitutional: no symptoms reported Eyes: denies: eye pain ENT: epistaxis Respiratory: no symptoms reported Cardiovascular: denies: chest pain Physical Exam - Physical Exam Vital Signs: Vital Signs 03/20/19 03/21/19 22:59 05:26 Temperature 99.2 F 98.9 F Pulse Rate 66 72 Respiratory 18 18 Rate Blood Pressure 122/85 133/85 O2 Sat by Pulse 98 99 Oximetry Physical Exam: GENERAL: The patient is well-developed well-nourished male lying on stretcher not appearing to be in acute distress. [] HEENT: Normocephalic. Atraumatic. Extraocular motions are intact. Patient has moist mucous membranes. NECK: Supple. Trachea midline CHEST/LUNGS: Clear to auscultation. There is no respiratory distress noted. HEART/CARDIOVASCULAR: Regular. There is no tachycardia. There is no gallop rub or murmur. ABDOMEN: Abdomen is soft, nontender. Patient has normal bowel sounds. There is no abdominal distention. SKIN: There is no rash. There is no edema. There is no diaphoresis. NEURO: The patient is awake, alert, and oriented. The patient is cooperative. The patient has normal speech MUSCULOSKELETAL: There is no evidence of acute injury. RECTAL: Internal hemorrhoid palpated. Guaiac negative ED Course Vital Signs 03/20/19 03/21/19 22:59 05:26 Temperature 99.2 F 98.9 F Pulse Rate 66 72 Respiratory 18 18 Rate Blood Pressure 122/85 133/85 O2 Sat by Pulse 98 99 Oximetry ED Medical Decision Making - Lab Data Result diagrams: 03/21/19 02:33 03/21/19 02:33 Laboratory Tests 03/21/19 03/21/19 03/21/19 02:33 02:33 Unknown WBC 6.0 RBC 4.72 Hgb 14.5 Hct 43.1 MCV 91 MCH 31 MCHC 34 RDW 14.5 Plt Count 302 Lymph % (Auto) 38.0 H [place] % (Auto) 10.3 H Eos % (Auto) 1.1 Baso % (Auto) 0.5 Lymph # 2.3 [place] # 0.6 Eos # 0.1 Baso # 0.0 Seg Neutrophils % 50.1 Seg Neutrophils # 3.0 PT 13.3 INR 1.00 APTT 44.5 H Sodium 137 Potassium 3.9 Chloride 99.8 Carbon Dioxide 24 Anion Gap 17 BUN 8 L Creatinine 0.8 Estimated GFR > 60 BUN/Creatinine Ratio 10 Glucose 99 Calcium 9.0 - Differential Diagnosis hemorrhoids Critical care attestation.: If time is entered above; I have spent that time in minutes in the direct care of this critically ill patient, excluding procedure time. ED Disposition Clinical Impression: Hemorrhoids, Rectal pain Disposition: DC- TO HOME OR SELFCARE Is pt being admited?: No Does the pt Need Aspirin: No Condition: Stable Instructions: Hemorrhoids (ED), Rectal Bleeding (ED) Additional Instructions: Return to the emergency department should you develop worsening symptoms, inability to tolerate food or liquids, high fever or any other concerns Prescriptions: Hydrocortisone [Anucort-HC SUPPOS] 25 mg RC BID #14 supp.rect Docusate Sodium [Colace CAP] 100 mg PO BID #60 capsule HYDROcodone/APAP 5-325 [[place] 5/325] 1 - 2 each PO Q6HR PRN #14 tablet PRN Reason: Pain Referrals: PRIMARY CAREMD [Primary Care Provider] - 3-5 Days PETER JEREZ MD [Staff Physician] - 3-5 Days Forms: Accompanied Note Time of Disposition: 12:09
[2019-03-21] MEDS ORDERED: SODIUM CHLORIDE 0.9% 1000 ML 1,000 ML IV ONE (11:13)
[2019-03-21 11:36] LABS: Partial Thromboplastin Time 44.5 Sec. (24.2-36.6)
[2019-03-21] MEDS ORDERED: DOCUSATE SODIUM 100 MG CAP ONE (14:34)
[2019-03-21 14:39] VITALS: BP 124/80
[2019-03-21] MEDS ORDERED: DOCUSATE SODIUM 100 MG CAP PO ONE (14:39)
== END 2019-03-21 14:40 | disposition home or self-care (01) ==
LOC: ED 21:26
DX: K64.9 Unspecified hemorrhoids (principal); F17.200 Nicotine dependence, unspecified, uncomplicated; Z88.2 Allergy status to sulfonamides; Z79.899 Other long term (current) drug therapy
CPT/HCPCS: 36415; 80048; 82271; 85025; 85610; 85730; 99283; J7030

== ENCOUNTER 2019-03-26 11:48 | Emergency (ER) | payer SELFPAY ==
--- NOTE | 2019-03-26 12:35 | Event Note ---
ED Screening Note Date of service: 03/26/19 Time: 12:34 ED Screening Note: 33 yo male presents for abd pain worsening and rectal pain with no relief with meds blood in stool This initial assessment/diagnostic orders/clinical plan/treatment(s) is/are subject to change based on patients health status, clinical progression and re- assessment by fellow clinical providers in the ED. Further treatment and workup at subsequent clinical providers discretion. Patient/guardian urged not to elope from the ED as their condition may be serious if not clinically assessed and managed. Initial orders include: cbc,cmp,ct abd acc eval
[2019-03-26 13:53] LABS: Hematocrit 31.9 % (35.5-45.6); Hemoglobin 10.6 gm/dl (11.8-15.2); Mean Corpuscular HGB Conc 33 % (32-34); Mean Corpuscular Volume 90 fl (84-94); Platelet Count 321 K/mm3 (140-440); Red Blood Count 3.54 M/mm3 (3.65-5.03); Red Cell Distribution Width 14.3 % (13.2-15.2)
[2019-03-26 14:25] LABS: Alanine Aminotransferase 5 units/L (7-56); Albumin 3.6 g/dL (3.9-5); BUN/Creatinine Ratio 12; Blood Urea Nitrogen 11 mg/dL (9-20); Calcium 8.7 mg/dL (8.4-10.2); Hemolysis Index 15
[2019-03-26 14:47] LABS: Basophils % (Manual) 0 % (0.0-1.8); Hypochromasia 1+; Platelet Estimate Consistent w Auto; Total Cells Counted 100
--- NOTE | 2019-03-26 16:06 | Emergency Department Report ---
ED Abdominal Pain HPI - General Chief Complaint: Abdominal Pain Stated Complaint: SBLOOD IN STOOL,DIZINESS, LIGHTHEADED Time Seen by Provider: 03/26/19 14:43 Source: patient Mode of arrival: Ambulatory Limitations: No Limitations - History of Present Illness Initial Comments: This is a 33-year-old -[place] male who presents to the emergency room with abdominal pain and hematochezia for 2-3 days. Past medical history of HIV, hemorrhoids, and constipation. Patient reports diarrhea yesterday what is which has resolved. He also reports dizziness and back pain as associated symptoms. Patient states he was seen in the emergency room yesterday and prescribed suppository and stool softeners which are not helping symptoms. He denies fever, vomiting, chills, weakness, urinary frequency, urgency, dysuria, or penile discharge. MD Complaint: abdominal pain Onset/Timin -: days(s) Location: diffuse Radiation: back Migration to: no migration Severity: moderate Severity scale (0 -10): 6 Quality: aching Consistency: intermittent Improves With: nothing Worsens With: bowel movement, movement Associated Symptoms: hematochezia - Related Data Home Medications Medication Instructions Recorded Confirmed Last Taken Elviteg/Cob/Emtri/Tenof Alafen 1 each PO QPM 05/06/18 05/09/18 05/07/18 [Genvoya Tablet] Previous Rx's Medication Instructions Recorded Last Taken Type DOXYCYCLINE Hyclate [Vibramycin 100 mg PO BID #14 capsule 05/07/18 05/07/18 Rx CAP] Nicotine [Habitrol] 14 mg TD DAILY #30 patch 05/10/18 Unknown Rx Docusate Sodium [Colace CAP] 100 mg PO BID #60 capsule 03/21/19 Unknown Rx HYDROcodone/APAP 5-325 [[place] 1 - 2 each PO Q6HR PRN #14 tablet 03/21/19 Unknown Rx 5/325] Hydrocortisone [Anucort-HC SUPPOS] 25 mg RC BID #14 supp.rect 03/21/19 Unknown Rx DOXYCYCLINE Hyclate [Vibramycin 100 mg PO Q12HR #14 capsule 03/26/19 Unknown Rx CAP] metroNIDAZOLE [Flagyl TAB] 500 mg PO Q12HR #14 tab 03/26/19 Unknown Rx Allergies Allergy/AdvReac Type Severity Reaction Status Date / Time sulfamethoxazole Allergy Hives Verified 09/22/18 20:28 [From Bactrim] trimethoprim [From Bactrim] Allergy Hives Verified 09/22/18 20:28 ED Review of Systems ROS: Stated complaint: SBLOOD IN STOOL,DIZINESS, LIGHTHEADED Other details as noted in HPI Constitutional: denies: chills, fever Respiratory: denies: cough, shortness of breath, wheezing Cardiovascular: denies: chest pain, palpitations Gastrointestinal: abdominal pain, constipation. denies: nausea, diarrhea Musculoskeletal: back pain. denies: joint swelling, arthralgia Skin: denies: rash, lesions Neurological: vertigo. denies: headache, weakness, paresthesias Psychiatric: denies: anxiety, depression ED Past Medical Hx - Past Medical History Previous Medical History?: Yes Hx Hypertension: No Hx Heart Attack/AMI: No Hx Congestive Heart Failure: No Hx Diabetes: No Hx Asthma: No Hx COPD: No Hx HIV: Yes Additional medical history: epididymitis, Hemorrhoids - Surgical History Past Surgical History?: No - Social History Smoking Status: Current Every Day Smoker Substance Use Type: None - Medications Home Medications: Home Medications Medication Instructions Recorded Confirmed Last Taken Type Elviteg/Cob/Emtri/Tenof Alafen 1 each PO QPM 05/06/18 05/09/18 05/07/18 History [Genvoya Tablet] DOXYCYCLINE Hyclate [Vibramycin 100 mg PO BID #14 capsule 05/07/18 05/09/18 05/07/18 Rx CAP] Nicotine [Habitrol] 14 mg TD DAILY #30 patch 05/10/18 Unknown Rx Docusate Sodium [Colace CAP] 100 mg PO BID #60 capsule 03/21/19 Unknown Rx HYDROcodone/APAP 5-325 [[place] 1 - 2 each PO Q6HR PRN #14 tablet 03/21/19 Unknown Rx 5/325] Hydrocortisone [Anucort-HC SUPPOS] 25 mg RC BID #14 supp.rect 03/21/19 Unknown Rx DOXYCYCLINE Hyclate [Vibramycin 100 mg PO Q12HR #14 capsule 03/26/19 Unknown Rx CAP] metroNIDAZOLE [Flagyl TAB] 500 mg PO Q12HR #14 tab 03/26/19 Unknown Rx ED Physical Exam - General Limitations: No Limitations General appearance: alert, in no apparent distress - Respiratory Respiratory exam: Present: normal lung sounds bilaterally. Absent: respiratory distress - Cardiovascular Cardiovascular Exam: Present: regular rate, normal rhythm. Absent: systolic murmur, diastolic murmur, rubs, gallop - GI/Abdominal GI/Abdominal exam: Present: soft, tenderness (left upper quadrant and right lower quadrant), guarding, normal bowel sounds. Absent: distended, rebound, rigid, organomegaly - Back Exam Back exam: Present: full ROM. Absent: CVA tenderness (R), CVA tenderness (L) - Neurological Exam Neurological exam: Present: alert, oriented X3, normal gait - Psychiatric Psychiatric exam: Present: normal affect, normal mood - Skin Skin exam: Present: warm, dry, intact, normal color. Absent: rash ED Course Vital Signs 03/26/19 12:28 Temperature 99.2 F Pulse Rate 88 Respiratory 16 Rate Blood Pressure 141/89 O2 Sat by Pulse 100 Oximetry - Reevaluation(s) Reevaluation #1: 03/26/19 16:[address] Bradley regarding CT results. Instructed to treat for proctitis and refer to GI and general surgery. ED Medical Decision Making - Lab Data Result diagrams: 03/26/19 13:41 03/26/19 13:41 Lab Results 03/26/19 03/26/19 Range/Units 13:41 13:41 WBC 7.5 (4.5-11.0) K/mm3 RBC 3.54 L (3.65-5.03) M/mm3 Hgb 10.6 L (11.8-15.2) gm/dl Hct 31.9 L (35.5-45.6) % MCV 90 (84-94) fl MCH 30 (28-32) pg MCHC 33 (32-34) % RDW 14.3 (13.2-15.2) % Plt Count 321 (140-440) K/mm3 Add Manual Diff Complete Total Counted 100 Seg Neuts % (Manual) 61.0 (40.0-70.0) % Band Neutrophils % 0 % Lymphocytes % (Manual) 28.0 (13.4-35.0) % Reactive Lymphs % (Man) 4.0 % Monocytes % (Manual) 6.0 (0.0-7.3) % Eosinophils % (Manual) 1.0 (0.0-4.3) % Basophils % (Manual) 0 (0.0-1.8) % Metamyelocytes % 0 % Myelocytes % 0 % Promyelocytes % 0 % Blast Cells % 0 % Nucleated RBC % Not Reportable Seg Neutrophils # Man 4.6 (1.8-7.7) K/mm3 Band Neutrophils # 0.0 K/mm3 Lymphocytes # (Manual) 2.1 (1.2-5.4) K/mm3 Abs React Lymphs (Man) 0.3 K/mm3 Monocytes # (Manual) 0.5 (0.0-0.8) K/mm3 Eosinophils # (Manual) 0.1 (0.0-0.4) K/mm3 Basophils # (Manual) 0.0 (0.0-0.1) K/mm3 Metamyelocytes # 0.0 K/mm3 Myelocytes # 0.0 K/mm3 Promyelocytes # 0.0 K/mm3 Blast Cells # 0.0 K/mm3 WBC Morphology Not Reportable Hypersegmented Neuts Not Reportable Hyposegmented Neuts Not Reportable Hypogranular Neuts Not Reportable Smudge Cells Not Reportable Toxic Granulation Not Reportable Toxic Vacuolation Not Reportable Dohle Bodies Not Reportable Pelger-Huet Anomaly Not Reportable Erum Rods Not Reportable Platelet Estimate Consistent w auto Clumped Platelets Not Reportable Plt Clumps, EDTA Not Reportable Large Platelets Not Reportable Giant Platelets Not Reportable Platelet Satelliting Not Reportable Plt Morphology Comment Not Reportable RBC Morphology Not Reportable Dimorphic RBCs Not Reportable Polychromasia Not Reportable Hypochromasia 1+ Poikilocytosis Not Reportable Anisocytosis Not Reportable Microcytosis Not Reportable Macrocytosis Not Reportable Spherocytes Not Reportable Pappenheimer Bodies Not Reportable Sickle Cells Not Reportable Target Cells Not Reportable Tear Drop Cells Not Reportable Ovalocytes Not Reportable Helmet Cells Not Reportable [place] Bodies Not Reportable Bowdle Rings Not Reportable [place] Cells Not Reportable Bite Cells Not Reportable Crenated Cell Not Reportable Elliptocytes Not Reportable Acanthocytes (Spur) Not Reportable Rouleaux Not Reportable Hemoglobin C Crystals Not Reportable Schistocytes Not Reportable Malaria parasites Not Reportable Fei Bodies Not Reportable Hem Pathologist Commnt No Sodium 136 L (137-145) mmol/L Potassium 4.4 (3.6-5.0) mmol/L Chloride 99.3 (98-107) mmol/L Carbon Dioxide 22 (22-30) mmol/L Anion Gap 19 mmol/L BUN 11 (9-20) mg/dL Creatinine 0.9 (0.8-1.5) mg/dL Estimated GFR > 60 ml/min BUN/Creatinine Ratio 12 % Glucose 105 H (75-100) mg/dL Calcium 8.7 (8.4-10.2) mg/dL Total Bilirubin 0.20 (0.1-1.2) mg/dL AST 14 (5-40) units/L ALT 5 L (7-56) units/L Alkaline Phosphatase 65 (35-129) units/L Total Protein 7.6 (6.3-8.2) g/dL Albumin 3.6 L (3.9-5) g/dL Albumin/Globulin Ratio 0.9 % - Radiology Data Radiology results: report reviewed CT ABDOMEN AND PELVIS WITHOUT CONTRAST INDICATION: Bi-Lateral lower abdominal pain that radiate to back w/ vomiting CONTRAST: Without IV COMPARISON: 05/08/[address] scans at this location are performed using CT dose reduction for ALARA by means of automated exposure control. FINDINGS: Lung bases are clear. I see no abnormality of the gallbladder, bile ducts, or pancreas. No urinary tract calculi or evidence of obstruction are seen. Liver may show s light fatty inf iltration but is not significantly enlarged. Mild gaseous distention of the colon is seen without dilatation. I do not see evidence of bowel obstruction. On previous study there was wall thickening and inflammation involving the rectum. The rectal wall still appears thickened and there is induration in the surrounding fat. Focal thickening may be mildly more prominent in the mid rectum. Small nodes are seen in the perirectal area bilaterally which are more prominent than on previous study. A node on the right has a short axis diameter now of 13 mm compared to 10 mm previously. Several small nodes are seen in the lower abdominal retroperitoneum which are mildly more prominent than on previous study. IMPRESSION: Continued evidence of rectal wall thickening, probably mildly more prominent, with surrounding tissue induration and increasing lymphadenopathy. Though this could represent an inflammatory process and recurrence of proctitis, I am concerned about the possibility of rectal carcinoma despite the patient's age. - Medical Decision Making Patient was examined by me. Vitals stable and patient in no acute distress. Labs CT of abdomen and pelvis obtained. Left upper quadrant and right lower quadrant tenderness on exam. Labs are unremarkable. Continued evidence of rectal wall thickening, probably mildly more prominent, with surrounding tissue induration and increasing lymphadenopathy. Though this could represent an inflammatory process and recurrence of proctitis, I am concerned about the possibility of rectal carcinoma despite the patient's age. Given azithromycin and Rocephin while in ER. Patient informed of results. Start Flagyl and doxycycline. Referral to [facility] and surgery. Plan discussed with patient to discharge home and treat outpatient. He agrees with ER plan. Patient discharged home in stable condition. Follow up with PCP in 2-3 days. Critical care attestation.: If time is entered above; I have spent that time in minutes in the direct care of this critically ill patient, excluding procedure time. ED Disposition Clinical Impression: Proctitis, Rectal pain, Lymphedema, Nodule of rectum Abdominal pain Qualifiers: Abdominal location: generalized Qualified Code(s): R10.84 - Generalized abdominal pain Disposition: TO HOME OR SELFCARE Is pt being admited?: No Condition: Stable Instructions: Proctitis (ED) Additional Instructions: Complete all antibiotics as prescribed. Follow-up with general surgery and or body man from the referrals list below. Return to the emergency room if worsening symptoms. Prescriptions: metroNIDAZOLE [Flagyl TAB] 500 mg PO Q12HR #14 tab DOXYCYCLINE Hyclate [Vibramycin CAP] 100 mg PO Q12HR #14 capsule Referrals: [facility] [Provider Group] - 3-5 Days KYLEIGH MACIAS DO [Staff Physician] - 3-5 Days [facility] [Outside] - 3-5 Days Forms: Work/School Release Form(ED) Time of Disposition: 17:03
--- NOTE | 2019-03-26 16:28 | Cat Scan Report ---
CT ABDOMEN AND PELVIS WITHOUT CONTRAST INDICATION: Bi-Lateral lower abdominal pain that radiate to back w/ vomiting CONTRAST: Without IV COMPARISON: 05/08/[address] scans at this location are performed using CT dose reduction for ALARA by means of automated e xposure control. FINDINGS: Lung bases are clear. I see no abnormality of the gallbladder, bile ducts, or pancreas. No urinary tract calculi or evidence of obstruction are seen. Liver may show slight fatty infiltration b ut is not significantly enlarged. Mild gaseous distention of the colon is seen without dilatation. I do not see evidence of bowel obstr uction. On previous study there was wall thickening and inflammation involving the rectum. The rectal wall still appears thickened and there is induration in the surrounding fat. Focal thickening may be mildly more prominent in the mid rectum. Small nodes are seen in the perirectal area bilaterally whi ch are more prominent than on previous study. A node on the right has a short axis diameter now of 13 mm compared to 10 mm previously. Several small nodes are seen in the lower abdominal retroperitoneum which are mildly more prominent than on previous study. IMPRESSION: Continued evidence of rectal wall thickening, probably mildly more prominent, with surrou nding tissue induration and increasing lymphadenopathy. Though this could represent an inflammatory p rocess and recurrence of proctitis, I am concerned about the possibility of rectal carcinoma despite the patient's age. Signer Name: Thom Mancilla MD Signed: 03/26/2019 4:24 PM Workstation Name: [id number]
[2019-03-26] MEDS ORDERED: AZITHROMYCIN 250 MG TAB PO ONE (16:44)
[2019-03-26] MEDS ORDERED: LIDOCAINE-MPF (1%) 10 MG/1 ML VIAL 5 ML INFILTRATI ONE (16:44)
[2019-03-26 17:22] VITALS: BP 140/82
== END 2019-03-26 17:21 | disposition home or self-care (01) ==
LOC: ED 11:48
DX: K62.89 Other specified diseases of anus and rectum (principal); I89.0 Lymphedema, not elsewhere classified; F17.200 Nicotine dependence, unspecified, uncomplicated; Z79.899 Other long term (current) drug therapy; Z88.2 Allergy status to sulfonamides
CPT/HCPCS: 36415; 74176; 80053; 85007; 85025; 96372; 99284; J0696

== ENCOUNTER 2019-12-05 21:54 | Emergency (ER) | payer SELFPAY ==
[2019-12-05 22:49] VITALS: BP 130/76
== END 2019-12-06 00:15 | disposition left against medical advice (07) ==
LOC: ED 21:54
DX: R36.9 Urethral discharge, unspecified (principal); Z53.21 Procedure and treatment not carried out due to patient leaving prior to being seen by health care provider

== ENCOUNTER 2021-06-01 00:34 | Emergency (ER) | payer SELFPAY ==
[2021-06-01 00:52] VITALS: BP 145/93
[2021-06-01] MEDS ORDERED: IBUPROFEN 600 MG TAB PO ONE (01:05)
[2021-06-01] MEDS ORDERED: oxyCODONE /ACETAMINOPHEN 5-325MG TAB PO ONE (01:24)
--- NOTE | 2021-06-01 03:20 | Emergency Department Report ---
ED Rash HPI - HPI Chief Complaint: Skin Rash Stated Complaint: RASH Time Seen by Provider: 06/01/21 02:37 Duration: 3 Days Location: Upper Extremities Suspected Cause: Unknown Rash Symptoms: Yes Blistering, Yes Myalgias Severity: mild, moderate Other History: 35-year-old male presents emerge department complaining of a 4 to 5-day history of progressively worsening of rash to the left arm which is tingling sensation and has become painful with occasional pruritus. No fever, chills, sweats no nausea vomiting no hemoptysis no hematemesis medic easy ED Review of Systems ROS: Stated complaint: RASH Other details as noted in HPI Comment: All other systems reviewed and negative ED Past Medical Hx - Past Medical History Previous Medical History?: Yes Hx Hypertension: No Hx Heart Attack/AMI: No Hx Congestive Heart Failure: No Hx Diabetes: No Hx Asthma: No Hx COPD: No Hx HIV: Yes Additional medical history: epididymitis, Hemorrhoids - Surgical History Past Surgical History?: No - Social History Smoking Status: Current Every Day Smoker Substance Use Type: Marijuana - Medications Home Medications: Home Medications Medication Instructions Recorded Confirmed Last Taken Type Elviteg/Cob/Emtri/Tenof Alafen 1 each PO QPM 05/06/18 05/09/18 05/07/18 History [Genvoya Tablet] DOXYCYCLINE Hyclate [Vibramycin 100 mg PO BID #14 capsule 05/07/18 05/09/18 05/07/18 Rx CAP] Nicotine [Habitrol] 14 mg TD DAILY #30 patch 05/10/18 Unknown Rx Docusate Sodium [Colace CAP] 100 mg PO BID #60 capsule 03/21/19 Unknown Rx HYDROcodone/APAP 5-325 [[place] 1 - 2 each PO Q6HR PRN #14 tablet 03/21/19 Unknown Rx 5/325] Hydrocortisone [Anucort-HC SUPPOS] 25 mg RC BID #14 supp.rect 03/21/19 Unknown Rx DOXYCYCLINE Hyclate [Vibramycin 100 mg PO Q12HR #14 capsule 03/26/19 Unknown Rx CAP] metroNIDAZOLE [Flagyl TAB] 500 mg PO Q12HR #14 tab 03/26/19 Unknown Rx Acyclovir [Zovirax Tab] 800 mg PO 5XD #35 06/01/21 Unknown Rx traMADoL [Ultram] 50 mg PO Q6HR PRN #20 tablet 06/01/21 Unknown Rx Rash Exam - Exam General: Vital signs noted. No distress. Alert and acting appropriately. HEENT: No Periorbital Edema, No Conjuctival Injection, No Chemosis, No Perioral Edema, No Tongue Edema, No Uvular Edema, No Compromised Airway, No Drooling Lungs: Yes Good Air Exchange (Normal Breath Sounds), No Wheezes, No Ronchi, No Stridor, No Cough, No Labored Respirations, No Retractions, No Use of Accessory Muscles, No Other Abnormal Lung Sounds Heart: Yes Regular, No Murmur Skin: Yes Other (A variable staged vesicular erythematous rash to the left upper extremity along 1 dermatome) Other: Positive: Abdomen Normal, Neurologic Normal, Musculoskeletal Normal ED Course Vital Signs 06/01/21 06/01/21 00:49 01:27 Temperature 98.4 F Pulse Rate 96 H Respiratory 18 16 Rate Blood Pressure 145/93 O2 Sat by Pulse 99 Oximetry ED Medical Decision Making - Medical Decision Making 35-year-old male with no significant past past medical history no immunocompromising factors presenting department with a rash found to be a herpes zoster. Advised patient on need for treatment and the contagiousness factor of the rash and the need to refrain from work until his condition is cleared by his PCP Critical care attestation.: If time is entered above; I have spent that time in minutes in the direct care of this critically ill patient, excluding procedure time. ED Disposition Clinical Impression: Herpes zoster Disposition: HOME / SELF CARE / HOMELESS Is pt being admited?: No Does the pt Need Aspirin: No Condition: Stable Prescriptions: traMADoL [Ultram] 50 mg PO Q6HR PRN #20 tablet PRN Reason: Pain Acyclovir [Zovirax Tab] 800 mg PO 5XD #35
== END 2021-06-01 03:55 | disposition home or self-care (01) ==
LOC: ED 00:34
DX: B02.9 Zoster without complications (principal); F17.200 Nicotine dependence, unspecified, uncomplicated; F12.90 Cannabis use, unspecified, uncomplicated
CPT/HCPCS: 99282

== ENCOUNTER 2021-06-30 14:29 | Emergency (ER) | payer SELFPAY ==
[2021-06-30] MEDS ORDERED: dexAMETHasone 4 MG/ML VIAL IM ONE (15:18)
[2021-06-30] MEDS ORDERED: CYCLOBENZAPRINE 10 MG TAB PO ONE (15:18)
[2021-06-30] MEDS ORDERED: IBUPROFEN 800 MG TAB PO ONE (15:18)
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
[2021-06-30 15:26] VITALS: BP 130/88
== END 2021-06-30 16:55 | disposition home or self-care (01) ==
LOC: ED 14:29
DX: S16.1XXA Strain of muscle, fascia and tendon at neck level, initial encounter (principal); F17.200 Nicotine dependence, unspecified, uncomplicated; F12.90 Cannabis use, unspecified, uncomplicated; Z88.2 Allergy status to sulfonamides; Z88.8 Allergy status to other drugs, medicaments and biological substances; Z79.899 Other long term (current) drug therapy; X58.XXXA Exposure to other specified factors, initial encounter; Y93.89 Activity, other specified; Y92.89 Other specified places as the place of occurrence of the external cause; Y99.8 Other external cause status
CPT/HCPCS: 99282; J1100

== ENCOUNTER 2021-07-19 15:15 | Emergency (ER) | payer SELFPAY ==
--- NOTE | 2021-07-19 18:15 | Emergency Department Report ---
Minor Respiratory - HPI Chief Complaint: Upper Respiratory Infection Stated Complaint: COUGHING/DIZZY Time Seen by Provider: 07/19/21 18:12 Duration: 3 Days Pain Location: Chest Severity: mild Minor Respiratory: Yes Rhinorrhea, Yes Sore Throat, Yes Able to Tolerate Fluids, Yes Cough, No Ear Pain, No Sick Contacts, No Hemoptysis, No Chest Pain, No Shortness of Breath, No Fever Other History: Patient is a 35-year-old male that comes to the emergency room with cough and congestion for 3 days. No fever or chills. He missed work and is asking for a work note. ED Review of Systems ROS: Stated complaint: COUGHING/DIZZY Other details as noted in HPI Comment: All other systems reviewed and negative ED Past Medical Hx - Past Medical History Previous Medical History?: Yes Hx Hypertension: No Hx Heart Attack/AMI: No Hx Congestive Heart Failure: No Hx Diabetes: No Hx Asthma: No Hx COPD: No Hx HIV: Yes Additional medical history: epididymitis, Hemorrhoids - Surgical History Past Surgical History?: No - Family History Family history: no significant - Social History Smoking Status: Current Every Day Smoker Substance Use Type: Marijuana - Medications Home Medications: Home Medications Medication Instructions Recorded Confirmed Last Taken Type Elviteg/Cob/Emtri/Tenof Alafen 1 each PO QPM 05/06/18 05/09/18 05/07/18 History [Genvoya Tablet] Acyclovir [Zovirax Tab] 800 mg PO 5XD #35 06/01/21 Unknown Rx Cyclobenzaprine [Flexeril] 10 mg PO TID PRN #10 tablet 06/30/21 Unknown Rx Ibuprofen [Motrin] 800 mg PO Q8HR PRN #30 tablet 06/30/21 Unknown Rx methylPREDNISolone [Medrol 4MG 4 mg PO FS #1 tab.ds.pk 06/30/21 Unknown Rx DOSEPAK (21 tabs)] Minor Respiratory Exam - Exam General: Vital signs noted. No distress. Alert and acting appropriately. HEENT: Yes Pharyngeal Erythema, Yes Moist Mucous Membranes, No Pharyngeal Exudates, No Rhinorrhea, No Conjuctival Injection, No Frontal Tenderness, No Ma xillary Tenderness Ear: Neither TM Bulge, Neither TM Erythema, Neither EAC Pain, Neither EAC Discharge Neck: Yes Supple, No Adenopathy Lungs: Yes Good Air Exchange, No Wheezes, No Ronchi, No Stridor, No Cough, No Labored Respirations, No Retractions, No Use of Accessory Muscles, No Other Abnormal Lung Sounds Heart: Yes Regular, No Murmur Abdomen: Yes Normal Bowel Sounds, No Tenderness, No Peritoneal Signs Skin: No Rash, No Edema Neurologic: Alert and oriented, no deficits. Musculoskeletal: Unremarkable. ED Course Vital Signs 07/19/21 17:52 Temperature 98.5 F Pulse Rate 80 Respiratory 14 Rate Blood Pressure 141/87 O2 Sat by Pulse 99 Oximetry ED Medical Decision Making - Medical Decision Making Vital Signs 07/19/21 17:52 Temperature 98.5 F Pulse Rate 80 Respiratory 14 Rate Blood Pressure 141/87 O2 Sat by Pulse 99 Oximetry Patient being discharged home with discharge plan of care including diet, activity, medications and follow-up. Have given him a work note. He will get a COVID test at [facility] to return to work. - Differential Diagnosis URI Critical care attestation.: If time is entered above; I have spent that time in minutes in the direct care of this critically ill patient, excluding procedure time. ED Disposition Clinical Impression: Allergic rhinitis Disposition: 01 HOME / SELF CARE / HOMELESS Is pt being admited?: No Does the pt Need Aspirin: No Condition: Stable Instructions: Upper Respiratory Infection, Adult Additional Instructions: Diet and activity as tolerated Motrin or Tylenol for pain See attached work note Stay well-hydrated with water Follow-up with PCP if your symptoms persist I have given you referral below Referrals: BRADY BALLARD MD [Staff Physician] - 3-5 Days Forms: Work/School Release Form(ED) Time of Disposition: 18:13
[2021-07-19 19:04] VITALS: BP 140/86
== END 2021-07-19 19:04 | disposition home or self-care (01) ==
LOC: ED 15:15
DX: J30.9 Allergic rhinitis, unspecified (principal); F17.200 Nicotine dependence, unspecified, uncomplicated; F12.90 Cannabis use, unspecified, uncomplicated; Z88.2 Allergy status to sulfonamides; Z88.8 Allergy status to other drugs, medicaments and biological substances; Z79.899 Other long term (current) drug therapy
CPT/HCPCS: 99282